=== PATIENT | male | born 1975 | race Caucasian/White ===

== ENCOUNTER → 2020-03-20 | Outpatient (CLI) | payer SELFPAY ==
[~2020-03-20] MED LIST: AMLODIPINE BESYL5 MG PO; ANTIVERT 12.512.5 MG PO; ASPIRIN 325MG325 MG PO; ASPIRIN CHEWABL81 MG PO; CEFUROXIME500 MG PO; LISINOPRIL-HCT1 EAC1 PO; MEDROL4 MG PO; NEURONTIN 400400 MG PO; NITROGLYCERIN0.4 MG SL; NORFLEX 100 MG100 MG PO; PANTOPRAZOLE SO40 MG PO; PREDNISONE 50 M50 MG PO; REQUIP0.5 MG PO; ROBAXIN500 MG PO; ROBITUSSIN AC480 ML PO; VENTOLIN HFA 66.7 GM INH; VOLTAREN TOP; Voltaren Gel 1 % TOP
[2020-03-20 16:54] LABS: HEMOGLOBIN 15.8 gm/dl (14.0-17.5); RED BLOOD COUNT 5.41 M/UL (4.20-5.50); WHITE BLOOD COUNT 14.9 K/UL (4.5-11.0)
[2020-03-20 17:15] LABS: BUN/CREATININE RATIO 12 (0-10)
[2020-03-22 06:44] LABS: CREATININE, URINE 107.7 mg/dL (Not Estab.); MICROALB/CREAT RATIO <3 (0-29)
== END ==
LOC: LAB 15:53
PROVIDERS: Family Medicine
DX: E11.42 Type 2 diabetes mellitus with diabetic polyneuropathy (principal); E78.2 Mixed hyperlipidemia; I10 Essential (primary) hypertension; K21.9 Gastro-esophageal reflux disease without esophagitis
CPT/HCPCS: 80053; 80061; 82043; 82570; 83036; 84443; 85025

== ENCOUNTER → 2020-03-27 | Outpatient (CLI) | payer SELFPAY ==
[2020-03-27 15:16] LABS: HEMOGLOBIN 15.6 gm/dl (14.0-17.5); RED BLOOD COUNT 5.38 M/UL (4.20-5.50)
== END ==
LOC: LAB 14:12
PROVIDERS: Physician Assistant Medical
DX: E11.42 Type 2 diabetes mellitus with diabetic polyneuropathy (principal); E78.2 Mixed hyperlipidemia; I10 Essential (primary) hypertension; K21.9 Gastro-esophageal reflux disease without esophagitis
CPT/HCPCS: 85025

== ENCOUNTER → 2020-09-11 | Outpatient (CLI) | payer OTHER ==
[2020-09-11 07:04] LABS: HEMOGLOBIN 14.6 gm/dl (14.0-17.5); RED BLOOD COUNT 5.19 M/UL (4.20-5.50); WHITE BLOOD COUNT 8.4 K/UL (4.5-11.0)
[2020-09-11 07:30] LABS: BUN/CREATININE RATIO 14 (0-10)
[2020-09-12 09:16] LABS: CREATININE, URINE 228.7 mg/dL (Not Estab.)
== END ==
LOC: LAB 06:40
PROVIDERS: Family Medicine
DX: E11.42 Type 2 diabetes mellitus with diabetic polyneuropathy (principal); E78.2 Mixed hyperlipidemia; I10 Essential (primary) hypertension
CPT/HCPCS: 36415; 80053; 80061; 82043; 82570; 83036; 84443; 85025

== ENCOUNTER 2020-12-06 15:51 | Emergency (ER) | payer OTHER ==
[2020-12-06] MEDS ORDERED: CYCLOBENZAPRINE10 MG PO (18:33)
[2020-12-06] MEDS ORDERED: IBUPROFEN800 MG PO (18:33)
== END 2020-12-06 19:06 | disposition home or self-care (01) ==
LOC: ER1 15:51
DX: S39.012A Strain of muscle, fascia and tendon of lower back, initial encounter (principal); M54.16 Radiculopathy, lumbar region; I10 Essential (primary) hypertension; E11.40 Type 2 diabetes mellitus with diabetic neuropathy, unspecified; E78.5 Hyperlipidemia, unspecified; F17.210 Nicotine dependence, cigarettes, uncomplicated
CPT/HCPCS: 72131; 96372; 99283; J1100; J1885

== ENCOUNTER → 2020-12-10 | Outpatient (CLI) | payer OTHER ==
[~2020-12-10] MED LIST changes: +CYCLOBENZAPRINE10 MG PO; +IBUPROFEN800 MG PO
[2020-12-10 09:14] LABS: HEMOGLOBIN 15.8 gm/dl (14.0-17.5); RED BLOOD COUNT 5.23 M/UL (4.20-5.50); WHITE BLOOD COUNT 8.3 K/UL (4.5-11.0)
[2020-12-10 10:15] LABS: BUN/CREATININE RATIO 14 (0-10)
== END ==
LOC: LAB 08:49
PROVIDERS: Family Medicine
DX: E78.2 Mixed hyperlipidemia (principal); I10 Essential (primary) hypertension; E11.42 Type 2 diabetes mellitus with diabetic polyneuropathy
CPT/HCPCS: 36415; 80053; 80061; 83036; 85025

== ENCOUNTER 2021-02-15 13:35 | Emergency (ER) | payer SELFPAY ==
[2021-02-15 15:40] LABS: HEMOGLOBIN 14.1 gm/dl (14.0-17.5); RED BLOOD COUNT 4.88 M/UL (4.20-5.50); WHITE BLOOD COUNT 8.6 K/UL (4.5-11.0)
[2021-02-15 16:04] LABS: BUN/CREATININE RATIO 18 (0-10)
== END 2021-02-15 18:47 | disposition home or self-care (01) ==
LOC: ER1 13:35 → CDU 17:58 → ER1 17:58
PROVIDERS: Emergency Medicine
DX: R07.89 Other chest pain (principal); R51.9 Headache, unspecified; Z20.822 Contact with and (suspected) exposure to COVID-19; E11.9 Type 2 diabetes mellitus without complications; I10 Essential (primary) hypertension; F17.210 Nicotine dependence, cigarettes, uncomplicated
CPT/HCPCS: 70450; 71045; 73030; 80053; 82550; 82553; 83874; 84484; 85025; 85379; 93005; 99285; U0002

== ENCOUNTER → 2021-06-28 | Outpatient (CLI) | payer OTHER ==
[2021-06-28 11:50] LABS: HEMOGLOBIN 14.6 gm/dl (14.0-17.5); RED BLOOD COUNT 5.01 M/UL (4.20-5.50); WHITE BLOOD COUNT 9.4 K/UL (4.5-11.0)
[2021-06-28 13:17] LABS: BUN/CREATININE RATIO 20 (0-10)
[2021-06-29 11:18] LABS: CREATININE, URINE 182.3 mg/dL (Not Estab.)
== END ==
LOC: LAB 10:56
PROVIDERS: Family Medicine
DX: E11.42 Type 2 diabetes mellitus with diabetic polyneuropathy (principal); E78.2 Mixed hyperlipidemia; I10 Essential (primary) hypertension
CPT/HCPCS: 36415; 80053; 80061; 82043; 82570; 82607; 83036; 84443; 85025

== ENCOUNTER → 2021-07-06 | Outpatient (CLI) | payer OTHER | LOC: RAD 07:47 | DX: S43.432A Superior glenoid labrum lesion of left shoulder, initial encounter (principal); X58.XXXA Exposure to other specified factors, initial encounter | CPT/HCPCS: 73040; 73222; A9577; Q9967 ==

== ENCOUNTER → 2021-07-20 | Outpatient (CLI) | payer OTHER ==
[2021-07-20 16:59] LABS: HEMOGLOBIN 14.4 gm/dl (14.0-17.5); RED BLOOD COUNT 4.97 M/UL (4.20-5.50); WHITE BLOOD COUNT 10.4 K/UL (4.5-11.0)
[2021-07-20 17:18] LABS: BUN/CREATININE RATIO 18 (0-10)
== END ==
LOC: LAB 16:34
PROVIDERS: Nurse Practitioner Family
DX: R11.0 Nausea (principal); R19.7 Diarrhea, unspecified
CPT/HCPCS: 80053; 85025

== ENCOUNTER → 2021-09-23 | Outpatient (CLI) | payer OTHER ==
[2021-09-23 16:52] LABS: RED BLOOD COUNT 5.08 M/UL (4.20-5.50); WHITE BLOOD COUNT 12.1 K/UL (4.5-11.0)
[2021-09-23 17:13] LABS: BUN/CREATININE RATIO 19 (0-10)
== END ==
LOC: LAB 16:27
PROVIDERS: Nurse Practitioner Family
DX: I10 Essential (primary) hypertension (principal); R21 Rash and other nonspecific skin eruption
CPT/HCPCS: 36415; 80053; 83735; 84439; 84443; 85025; 85652; 86038; 86140

== ENCOUNTER 2021-09-25 14:44 | Emergency (ER) | payer OTHER ==
[2021-09-25 16:53] LABS: HEMOGLOBIN 14.6 gm/dl (14.0-17.5); WHITE BLOOD COUNT 11.8 K/UL (4.5-11.0)
[2021-09-25 17:13] LABS: BUN/CREATININE RATIO 20 (0-10)
== END 2021-09-25 17:39 | disposition home or self-care (01) ==
LOC: ER1 14:44
PROVIDERS: Physician Assistant
DX: M54.9 Dorsalgia, unspecified (principal); G89.29 Other chronic pain; R25.2 Cramp and spasm; I10 Essential (primary) hypertension; E78.5 Hyperlipidemia, unspecified; E11.9 Type 2 diabetes mellitus without complications; F17.200 Nicotine dependence, unspecified, uncomplicated
CPT/HCPCS: 71045; 80053; 82550; 82553; 84484; 85025; 93005; 96374; 99284; J1885

== ENCOUNTER → 2021-10-06 | Outpatient (CLI) | payer OTHER | LOC: RAD 13:19 | DX: M51.36 Other intervertebral disc degeneration, lumbar region (principal); M51.34 Other intervertebral disc degeneration, thoracic region | CPT/HCPCS: 72070; 72100 ==

== ENCOUNTER → 2021-10-26 | Outpatient (CLI) | payer SELFPAY | LOC: KOH-I 08:57 | DX: M51.36 Other intervertebral disc degeneration, lumbar region (principal); M51.37 Other intervertebral disc degeneration, lumbosacral region | CPT/HCPCS: 72148 ==